=== PATIENT | male | born 1985 | race Two or more races ===

== ENCOUNTER 2022-10-08 21:57 | Emergency (ER) | payer MEDICAID ==
[~2022-10-08] VITALS: Ht 175.3 cm; Wt 92.0 kg
[2022-10-08 22:21] VITALS: BP 130/73; PULSE 88; RESP 16; TEMP 98.2
[2022-10-08] MEDS ORDERED: PredniSONE 20 MG TABLET PO ONE (23:00)
[2022-10-08] MEDS ORDERED: DOXYCYCLINE HYCLATE 100 MG TABLET PO ONE (23:00)
[2022-10-08] MEDS ORDERED: DiphenhydrAMINE HCL 25 MG CAPSULE PO ONE (23:00)
[2022-10-08] MEDS ORDERED: BACITRACIN 28 GM OINTMENT TP ONE (23:00)
[2022-10-08] MEDS ORDERED: PRED-554 PO (23:49)
[2022-10-08] MEDS ORDERED: DOXY-354 PO (23:49)
[2022-10-08] MEDS ORDERED: DIPH25CA85 PO (23:49)
== END 2022-10-09 00:03 | disposition home or self-care (01) ==
LOC: EMS 21:58
DX: L23.7 Allergic contact dermatitis due to plants, except food (principal); L03.818 Cellulitis of other sites
CPT/HCPCS: 99284